=== PATIENT | female | born 1955 | race Caucasian/White ===

== ENCOUNTER 2016-03-15 11:30 | Outpatient (CLI) | payer MEDICARE, MEDICAID ==
[2005-02-21 17:32] VITALS: BP 116/80
[~2016-03-15] VITALS: Ht 160 cm; Wt 44.0 kg
[~2016-03-15 11:30] MED LIST: ALBUTEROL0.09 MG/A1 IH; ASPIR-LOW81 MG PO; CELEBREX 200MG200 MG PO; HCTZ 25MG25 MG PO; LEXAPRO 10MG10 MG PO; PERCOCET 325 MG1 TA2 PO; SINGULAIR10 MG PO; XOPENEX 1.1.25 MG/3 IH
[2016-03-15 12:15] VITALS: BP 122/84; PULSE 76; TEMP 97.4
[2016-03-15] MEDS ORDERED: FLEXERIL 1010 MG/TAB PO (12:18)
[2016-03-15] MEDS ORDERED: NORCO 325 MG-7.1 TAB PO (12:18)
[2016-03-15] MEDS ORDERED: HCTZ 25MG TAB25 MG PO (12:19)
[2016-03-15] MEDS ORDERED: ASPIRIN E.C. 8181 MG PO (12:21)
== END 2016-03-15 13:10 | disposition home or self-care (01) ==
LOC: EUO 11:30
DX: M81.0 Age-related osteoporosis without current pathological fracture (principal)
CPT/HCPCS: J3489

== ENCOUNTER 2017-06-09 14:35 | Outpatient (CLI) | payer MEDICARE, MEDICAID ==
[2005-02-21 17:32] VITALS: BP 116/80
[~2017-06-09] VITALS: Ht 160 cm; Wt 42.3 kg
[~2017-06-09 14:35] MED LIST changes: +ASPIRIN E.C. 8181 MG PO; +FLEXERIL 1010 MG/TAB PO; +HCTZ 25MG TAB25 MG PO; +NORCO 325 MG-7.1 TAB PO
[2017-06-09 14:59] VITALS: BP 123/64; PULSE 71; TEMP 97.5
== END 2017-06-09 16:10 | disposition home or self-care (01) ==
LOC: EUO 14:35
DX: M81.0 Age-related osteoporosis without current pathological fracture (principal)
CPT/HCPCS: J3489

== ENCOUNTER 2023-08-12 13:51 | Inpatient (IN) | payer MEDICARE, MEDICAID ==
[~2023-08-12] VITALS: Ht 152.4 cm; Wt 35.2 kg
[2023-08-12] MEDS ORDERED: NS 1,000 ML IV ONE (14:30)
[2023-08-12 14:58] LABS: BASO % 0.3 % (0.0-2.0); EOS # 0.1 K/mm3 (0.0-0.7); EOS % 0.3 % (0.0-4.0); GRAN # 12.3 K/mm3 (1.4-6.5); HEMATOCRIT 40.4 % (37.0-47.0); HEMOGLOBIN 13.2 g/dl (12.5-16.0); LYMPH # 1.2 K/mm3 (1.2-3.4); LYMPH % 8.2 % (20.0-51.0); MEAN CELL VOLUME 96 fl (80.0-100.0); MEAN CORPUSCULAR HEMOGLOBIN 31 pg (27-31); MEAN CORPUSCULAR HGB CONC 33 g/dl (33.0-37.0); MEAN PLATELET VOLUME 11.3 fl (7.4-10.4); MONO # 1.2 K/mm3 (0.1-0.6); MONO % 7.8 % (1.7-9.3); PLATELET COUNT 328 K/mm3 (130-400); RED BLOOD COUNT 4.23 M/mm3 (4.10-5.30); REDCELL DISTRIBUTION WIDTH-CV 11.4 % (11.5-14.5)
[2023-08-12 15:35] LABS: ALANINE AMINOTRANSFERASE 11 U/L (0-55); ALBUMIN 3.4 g/dL (3.4-4.8); ALKALINE PHOSPHATASE 79 U/L (40-150); ANION GAP 16 mmol/L (7-16); AST,SGOT 11 U/L (5-34); BILIRUBIN,TOTAL 0.4 mg/dL (0.2-1.2); BLOOD UREA NITROGEN 15 mg/dL (10-20); CALCIUM 9.7 mg/dL (8.4-10.2); CREATININE, serum 0.63 mg/dL (0.57-1.11); GLUCOSE 170 mg/dL (70-99); SODIUM 138 mEq/L (136-145); TOTAL PROTEIN 8.7 g/dl (6.2-8.1)
[2023-08-12 16:04] LABS: TROPONIN-I < 0.010 ng/mL (0.00-0.033)
[2023-08-12 16:05] LABS: CHLORIDE 87 mEq/L (98-107); POTASSIUM 2.9 mEq/L (3.5-4.5)
[2023-08-12] MEDS ORDERED: Albuterol/Ipratropium 3 MG-0.5 MG/3 ML Neb Soln IH ONE (16:15)
[2023-08-12] MEDS ORDERED: Cefepime 1 G in Water For Injection,Sterile 10 ML IV ONE (16:15)
[2023-08-12] MEDS ORDERED: *Potassium Replacement Protocol MC SCH ×2 (17:30→18:30)
[2023-08-12] MEDS ORDERED: LYRICA 100MG C100 M1 PO (17:57)
[2023-08-12] MEDS ORDERED: AMBIEN CR6.25 MG PO (17:57)
[2023-08-12] MEDS ORDERED: Potassium Bicarbonate/Citrate 20 MEQ Effervescent TAB PO SCH (18:30)
--- NOTE | 2023-08-12 18:43 | NUR ---
Pt arrived to medical unit from ED by wheelchair. Report received from POLI Diane. Admission intake and assessment completed. Home medications, allergies, and pharmacy reviewed. Pt is A&O x4. VSS. Lung sounds have inspiratory and expiratory wheezing upon auscultation. BS active x4. Pt denies pain at this time rating 0/10. DPNATHALY Roberts (daughter) at bedside, copy of paperwork placed on chart. INT to Lt wrist patent with no swelling, redness, or drainage. O2 in place at 2L NC with no irritation to bilateral nares. Oriented pt to room, call light, and bathroom. Pt has no request at this time. Sputum culture container placed at bedside and pt educated on how to use sputum container. Call light within reach.
[2023-08-12] MEDS ORDERED: Levalbuterol Neb Soln 1.25 MG/3 ML UD IH PRN (19:00)
[2023-08-12] MEDS ORDERED: Escitalopram 10 MG TAB PO SCH (19:21)
[2023-08-12] MEDS ORDERED: Heparin 5,000 UNITS/ML 1 ML VIAL SQ SCH (19:27)
[2023-08-12 19:28] VITALS: BP 132/63; PULSE 87; TEMP 98.5
--- NOTE | 2023-08-12 19:29 | NUR ---
Bedside report given to POLI Garcia. Pt awake in bed visiting with family. POLI Garcia notified of telemetry needing placed. Pt has no complaints at this time. Call light within reach.
[2023-08-12] MEDS ORDERED: dexAMETHasone 10 MG/ML VIAL IV SCH (19:30)
[2023-08-12] MEDS ORDERED: Cefepime 1 G in Water For Injection,Sterile 10 ML IV SCH (19:30)
[2023-08-12 21:00] VITALS: BP_SYST 136
[2023-08-12] MEDS ORDERED: Pregabalin 50 MG CAP PO SCH (21:00)
[2023-08-12] MEDS ORDERED: Doxycycline Monohydrate 100 MG CAP PO SCH (21:00)
[2023-08-12] MEDS ORDERED: Zolpidem 5 MG TAB PO SCH (21:00)
[2023-08-12 23:18] VITALS: BP 161/64; PULSE 81; TEMP 98.5
[2023-08-13] VITALS (8 sets, daily range): BP systolic 136–172; BP diastolic 58–80; PULSE 72–92; TEMP 97.6–98.1
[2023-08-13] MEDS ORDERED: Cefepime 1 G in Water For Injection,Sterile 10 ML IV SCH
[2023-08-13] MEDS ORDERED: Lidocaine 4% Topical Patch TP SCH (00:18)
[2023-08-13] MEDS ORDERED: Nicotine 21 MG DAILY PATCH TD SCH (00:19)
[2023-08-13 06:32] LABS: HEMATOCRIT 38.3 % (37.0-47.0); HEMOGLOBIN 12.6 g/dl (12.5-16.0); MEAN CELL VOLUME 96 fl (80.0-100.0); MEAN CORPUSCULAR HEMOGLOBIN 32 pg (27-31); MEAN CORPUSCULAR HGB CONC 33 g/dl (33.0-37.0); MEAN PLATELET VOLUME 11.7 fl (7.4-10.4); PLATELET COUNT 318 K/mm3 (130-400); RED BLOOD COUNT 3.98 M/mm3 (4.10-5.30); REDCELL DISTRIBUTION WIDTH-CV 11.4 % (11.5-14.5)
[2023-08-13] MEDS ORDERED: Levalbuterol Neb Soln 1.25 MG/3 ML UD IH SCH (07:00)
[2023-08-13 07:29] LABS: BAND 1 % (0-10); LYMPHOCYTE 7 % (20.0-51.0); NEUTROPHILS 92 % (42.0-75.2); PLATELET ESTIMATE NORMAL (NORMAL)
[2023-08-13 09:20] LABS: GLUCOSE 141 mg/dL (70-99)
[2023-08-13 09:21] LABS: ALBUMIN 3.4 g/dL (3.4-4.8); BLOOD UREA NITROGEN 13 mg/dL (10-20); CALCIUM 9.6 mg/dL (8.4-10.2); CHLORIDE 94 mEq/L (98-107); CREATININE, serum 0.61 mg/dL (0.57-1.11); MAGNESIUM 1.8 mg/dL (1.6-2.6); PHOSPHOROUS 3.7 mg/dL (2.3-4.7); POTASSIUM 4.2 mEq/L (3.5-4.5); SODIUM 141 mEq/L (136-145)
--- NOTE | 2023-08-13 12:21 | NUR ---
SW met with patient and daughter Barbra Del Real ([phone]) to complete initial assessment for discharge planning. Patient verified that she lives at home in [facility] alone, is independent. Patient sees Dr. Floyd as her PCP and has multiple specialists as well. Patient uses [facility] pharmacy and has walker, shower chair, scooter, toilet riser and oxygen provided by [employer] at 3 LPM at baseline. Patient states she has a ramp at home to her front door. Patient provided a copy of living will and DNR request. She states she has DPOA but does not know where the document is. Patient chose to do a new DPOA and named daughter Barbra as agent and Bill Del Real as alternate if needed. Dieudonne Alberto and this curriculum writer witnessed signature. Original and copies provided to patient and copy place on chart. Plan is to return home at discharge. Discharge plan: Home
[2023-08-13] MEDS ORDERED: Acetaminophen 325 MG TAB PO PRN (12:45)
--- NOTE | 2023-08-13 14:45 | NUR ---
Agree with HILAIRO Perry assessment of the patient. Patient complaints of pain, doctor aware. Not due for pain medication and patient notified. Order for tylenol 650mg Q4PRN. A&Ox3. VSS. 2L NC O2. Call light within reach
[2023-08-14 00:21] VITALS: BP 155/68; PULSE 75; TEMP 98.1
--- NOTE | 2023-08-14 02:43 | NUR ---
NURSING SHIFT ASSESSMENT COMPLETED. THE PATIENT WAS ALERT AND ORIENTED. THE PATIENT VERBALIZED PAIN 9/10 LOWER BACK AND LEFT SHOULDER. THE PATIENT WAS NOT HAPPY BECAUSE HER NORMAL NORCO DOSE IS A 10/325 TABLET. CURRENTLY NORCO 5/325 EVERY 8 HOURS IS ORDERED. PER HOSPITALIST AT THIS TIME THERE WILL BE NO DOSE OR FREQUENCY INCREASES. THIS INFORMATION WAS SHARED WITH THE PATIENT AND THE PATIENT WAS DISSATISFIED. TIME OF NEXT AVAILABLE DOSE PROVIDED. NO OTHER NEEDS AT THIS THIS TIME. THE PATIENT IS UP INDEPENDENTLY IN THE ROOM. CALL LIGHT AVAILABLE.
[2023-08-14 04:01] VITALS: BP 148/66; PULSE 75; TEMP 98
[2023-08-14 06:50] LABS: HEMOGLOBIN 11.9 g/dl (12.5-16.0); MEAN CELL VOLUME 96 fl (80.0-100.0); MEAN CORPUSCULAR HEMOGLOBIN 32 pg (27-31); MEAN CORPUSCULAR HGB CONC 33 g/dl (33.0-37.0); MEAN PLATELET VOLUME 12.2 fl (7.4-10.4); PLATELET COUNT 260 K/mm3 (130-400); RED BLOOD COUNT 3.72 M/mm3 (4.10-5.30); REDCELL DISTRIBUTION WIDTH-CV 11.6 % (11.5-14.5)
[2023-08-14 07:01] LABS: HEMATOCRIT 35.8 % (37.0-47.0)
[2023-08-14 07:30] LABS: CALCIUM 9.4 mg/dL (8.4-10.2); CREATININE, serum 0.58 mg/dL (0.57-1.11)
[2023-08-14 07:34] LABS: NEUTROPHILS 85 % (42.0-75.2)
[2023-08-14 07:35] LABS: BASOPHIL 1 % (0-2); EOSINOPHIL 1 % (0-4); LYMPHOCYTE 11 % (20.0-51.0); PLATELET ESTIMATE NORMAL (NORMAL)
--- NOTE | 2023-08-14 08:00 | NUR ---
PT RESTING IN BED UPON ENTRY. ADMINISTERED MEDICATIONS PER APR. PT ASKED ABOUT PAIN MEDICATION. RATED BACK AND SHOULDER PAIN 09/22. ANALGESIC ADMINISTERED BY POLI RODRÍGUEZ. PT ON 3 L O2 AT BASELINE. UPDATED PT ON PLAN OF CARE. NO COMPLAINTS AT THIS TIME. CALL LIGHT IN REACH. BREAKFAST TRAY AT BEDSIDE.
--- NOTE | 2023-08-14 08:00 | NUR ---
PATIENT ASSESSED ALONGSIDE HILARIO MONTES. MORNING MEDICATIONS ADMINISTERED BY HILARIO MONTES. PATIENT ENDORSES 8/10 GENERALIZED PAIN, GIVEN PRN MEDICATION PER eMAR. CURRENTLY ON 3L O2 VIA NC. UPDATED PATIENT ON PLAN FOR TODAY, PATIENT IS EAGER TO DISCHARGE HOME TODAY. WILL CONTINUE TO MONITOR.
[2023-08-14 08:06] VITALS: BP 137/67; PULSE 79; TEMP 98
[2023-08-14] MEDS ORDERED: DOXYCYCLINE 10100 MG PO (08:24)
[2023-08-14] MEDS ORDERED: XOPENEX 1.1.25 MG/3 IH (08:25)
[2023-08-14] MEDS ORDERED: PREDNISONE10 MG PO (08:28)
[2023-08-14] MEDS ORDERED: OMNICEF 300MG300 MG PO (08:29)
[2023-08-14] MEDS ORDERED: NEB MC (08:30)
[2023-08-14] MEDS ORDERED: TESSALON P100 MG/CAP PO (08:33)
[2023-08-14 08:38] LABS: PHOSPHOROUS 3.3 mg/dL (2.3-4.7)
[2023-08-14 09:00] VITALS: BP_SYST 137
--- NOTE | 2023-08-14 10:15 | NUR ---
Initial visit; Patient thanked Catheter Finisher And Inspector for looking in on her. Catheter Finisher And Inspector learned that Phil is from [place] and states that she much prefers coming to this hospital where she is well cared for. Phil thanked for keeping her in Catheter Finisher And Inspector's prayers.
--- NOTE | 2023-08-14 11:01 | NUR ---
PATIENT REQUIRES 3 LPM AT REST AND WALKING <88%. PATIENT WEARS 3 LPM AT HOME NOW.
[2023-08-14 11:46] VITALS: BP 167/74; PULSE 78; TEMP 98.3
[2023-08-14 13:49] VITALS: BP_SYST 167
--- NOTE | 2023-08-14 13:58 | NUR ---
DISCHARGE INSTRUCTIONS REVIEWED, FAMILY AT BEDSIDE, ALL QUESTIONS ANSWERED. IV AND TELEMETRY DISCONTINUED. PATIENT ESCORTED OFF OF UNIT BY [facility]IA [facility] [place] STAFF.
== END 2023-08-14 14:01 | disposition home or self-care (01) | DRG 193 ==
LOC: COL.ER 13:51 → MEDICAL 15:52
PROVIDERS: Emergency Medicine; Internal Medicine; ADMIT Internal Medicine
DX: J18.9 Pneumonia, unspecified organism (principal); J96.21 Acute and chronic respiratory failure with hypoxia; J44.0 Chronic obstructive pulmonary disease with (acute) lower respiratory infection; J44.1 Chronic obstructive pulmonary disease with (acute) exacerbation; E44.1 Mild protein-calorie malnutrition; Z68.1 Body mass index [BMI] 19.9 or less, adult; Z20.822 Contact with and (suspected) exposure to COVID-19; Z66 Do not resuscitate; G47.00 Insomnia, unspecified; F32.A Depression, unspecified; F17.210 Nicotine dependence, cigarettes, uncomplicated; Z88.8 Allergy status to other drugs, medicaments and biological substances; Z88.1 Allergy status to other antibiotic agents; Z99.81 Dependence on supplemental oxygen; Z79.899 Other long term (current) drug therapy; Z23 Encounter for immunization
CPT/HCPCS: J0692; J1100; J7030